=== PATIENT | female | born 1945 | race Caucasian/White ===

== ENCOUNTER → 2018-11-06 10:40 | Outpatient (CLI) | payer MEDICARE, OTHER, SELFPAY ==
--- NOTE | 2018-11-06 | DI.MG.S_ITS ---
BILATERAL DIGITAL SCREENING MAMMOGRAM 3D/2D WITH CAD: 11/06/2018 CLINICAL: Routine screening. Family history of breast cancer. Comparison is made to exams dated: 10/05/2017 mammogram, 09/06/2016 mammogram, and 09/01/2015 mammogram - [facility]. There are scattered fibroglandular elements in both breasts. Current study was also evaluated with a Computer Aided Detection (CAD) system. No significant masses, calcifications, or other findings are seen in either breast. There has been no significant interval change. IMPRESSION: NEGATIVE There is no mammographic evidence of malignancy. A 1 year screening mammogram is recommended. This exam was interpreted at Station ID: [id number]. NOTE: For mammograms, a report in lay terms will be sent to the patient. Approximately 15% of breast malignancies will not be visualized mammographically. In the management of a palpable breast mass, a negative mammogram must not discourage biopsy of a clinically suspicious lesion. Electronically Signed By: Justin medeiros/alok:11/06/2018 11:40:17 letter sent: Normal Exam ACR BI-RADS Category 1: Negative 3341F
== END ==
PROVIDERS: Family Provider Physician Assistant; PCP Physician Assistant; Visit Provider Physician Assistant
DX: Z12.31 Encounter for screening mammogram for malignant neoplasm of breast (principal); Z80.3 Family history of malignant neoplasm of breast
CPT/HCPCS: 77063; 77067

== ENCOUNTER 2019-04-07 12:49 | Emergency (ER) | payer MEDICARE, OTHER, SELFPAY ==
[2019-04-07 12:49] VITALS: BP 150/79; PULSE 74; RESP 18; TEMP 37.1; O2SAT 95; BMI 24.5
--- NOTE | 2019-04-07 13:01 | ED_ITS ---
HPI - Wound/Laceration <Rochelle Sharma PA-C - Last Filed: 04/07/19 20:23> General Chief Complaint: Wound/Laceration Stated Complaint: Fell and cut chin open Time Seen by Provider: 04/07/19 12:56 Source: patient Mode of arrival: ambulatory Limitations: no limitations History of Present Illness HPI narrative: This 74-year-old female was walking with item in both hands when she tripped over a parking bumper, falling onto her chin. She states that she did not hit her head, denies LOC or neck pain. She denies headache, vision change, nausea or vomiting. She states her left knee is a little bit sore but she was able to walk on it without problems. Witnesses helped her up and put pressure on the bleeding. Her says they came in because they thought she might need sutures in her chin. She denies pain in her jaw. Unsure of date of last tetanus vaccine Related Data Home Medications Medication Instructions Recorded Confirmed aspirin 325 mg PO QDAY #0 05/30/17 paroxetine HCl [Paxil] 10 mg PO QAM #0 05/30/17 escitalopram oxalate 10 mg PO DAILY 04/07/19 04/07/19 levothyroxine [Synthroid] 75 mcg PO DAILY 04/07/19 04/07/19 Allergies Allergy/AdvReac Type Severity Reaction Status Date / Time Penicillins [PENICILLINS] Allergy Mild RASH Verified 04/07/19 12:59 SULFA Allergy Mild RASH Uncoded 04/07/19 12:59 Review of Systems <Rochelle Sharma PA-C - Last Filed: 04/07/19 20:23> Review of Systems ROS Unobtainable: All systems reviewed & are unremarkable except as noted in HPI and below PFSH <Rochelle Sharma PA-C - Last Filed: 04/07/19 20:23> Medical History (Updated 04/07/19 @ 14:24 by Rochelle Sharma PA-C) GOLDIE (obstructive sleep apnea) (Chronic) Restless leg syndrome (Chronic) Obstructive sleep apnea of adult (Chronic) 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) Surgical History (Updated 04/07/19 @ 13:00 by Rochelle Sharma PA-C) Status post cholecystectomy Social History marital status: household members: spouse lives independently: Yes caregiver/support person: No housing: house occupational status: previously employed Smoking Status: Never smoker Social History marital status: household members: spouse lives independently: Yes caregiver/support person: No housing: house occupational status: previously employed Smoking Status: Never smoker Exam <Rochelle Sharma PA-C - Last Filed: 04/07/19 20:23> Narrative Exam Narrative: GENERAL APPEARANCE: Patient sitting comfortably, in no distress. HEENT: PERRL, EOMI, dentition appears intact. No tenderness over the facial bones. Patient is able to bite down on tongue depressor which can be twisted until broken without difficulty or pain. Full range of motion of the jaw. LUNGS: Clear to auscultation bilaterally. HEART: Rate and rhythm regular without murmur, normal S1 and S2, no S3 or S4. DERMATOLOGIC: There is a small, triangular avulsion just above the left mid lip with some swelling. On the inferior chin there is a 1 cm curvilinear laceration maximum depth 0.5 cm with some surrounding ecchymoses, nontender. Left knee there are some superficial scabs and abrasions MUSCULOSKELETAL: Mild tenderness over the left patella, no point tenderness over the joint line Initial Vital Signs Initial Vital Signs: Vital Signs Temperature 98.7 F 04/07/19 12:49 Pulse Rate 74 04/07/19 12:49 Respiratory Rate 18 04/07/19 12:49 Blood Pressure 150/79 H 04/07/19 12:49 Pulse Oximetry 95 04/07/19 12:49 <Ata Cedeno DO - Last Filed: 04/08/19 06:50> Initial Vital Signs Initial Vital Signs: Vital Signs Temperature 98.7 F 04/07/19 12:49 Pulse Rate 74 04/07/19 12:49 Respiratory Rate 18 04/07/19 12:49 Blood Pressure 150/79 H 04/07/19 12:49 Pulse Oximetry 95 04/07/19 12:49 Procedures <Rochelle Sharma PA-C - Last Filed: 04/07/19 20:23> Laceration Repair Laceration 1: Site: face (chin) Size (cm): 1 Description: linear Depth: simple, single layer Local Anesthetic: lidocaine 1% and with epi Amount of anesthesia used (mL): 4 Pre-repair: wound explored, irrigated extensively and deep structures intact Skin layer closed with: nylon Size (cm): 5-0 Technique: simple, interrupted Course <Rochelle Sharma PA-C - Last Filed: 04/07/19 20:23> Vital Signs - 8 hr 04/07/19 12:49 Temperature 98.7 F Pulse Rate 74 Respiratory Rate 18 Blood Pressure 150/79 H Pulse Oximetry 95 <Ata Cedeno DO - Last Filed: 04/08/19 06:50> Vital Signs - 8 hr 04/07/19 12:49 Temperature 98.7 F Pulse Rate 74 Respiratory Rate 18 Blood Pressure 150/79 H Pulse Oximetry 95 Discharge Plan Departure Patient Disposition: Home Clinical Impression: Contusion of multiple sites Laceration of chin Qualifiers: Encounter type: initial encounter Qualified Code(s): S01.81XA - Laceration without foreign body of other part of head, initial encounter Avulsion of skin of face Qualifiers: Encounter type: initial encounter Qualified Code(s): S01.80XA - Unspecified op en wound of other part of head, initial encounter Discharge Date/Time: 04/07/19 14:33 Interventions: ED Discharge Assessment Last Done: 04/07/19 14:33 Instructions: DI for Laceration Repair, DI for Avulsion Laceration (Not Requiring Sutures) Activity Restrictions/Additional Instructions: Your sutures should be ready to remove in about a week, so please schedule a fo llow-up with your PCP on Sunday. It will take some time for the bruising and swelling to improve. The area where the skin is torn above your upper lip should heal on its own. As we talked about, you can apply a little antibiotic ointment or Vaseline if the wounds are getting crusty. It is okay to rinse quickly and pat dry, do not keep the sutures in water for prolonged periods. You can leave open to air if you will not be in danger of bumping or tearing sutures, you can put a bandage over as needed. Monitor for signs of infection such as redness, draining pus, increased pain or fever and see your PCP right away or return to the ED if any of these occur. We did not update your tetanus vaccine today since we think you had 1 in 2014, but please verify this and make sure you get 1 with your PCP on Sunday if this is not the case. Prescriptions: No Action paroxetine HCl [Paxil] 10 MG tablet 10 mg PO QAM Qty: 0 RF: 0 aspirin 325 MG tablet 325 mg PO QDAY Qty: 0 RF: 0 levothyroxine [Synthroid] 75 mcg tablet 75 mcg PO DAILY RF: 0 escitalopram oxalate 10 mg tablet 10 mg PO DAILY RF: 0 Referrals: Falguni Foster PA-C [Primary Care Provider] - <Ata Cedeno DO - Last Filed: 04/08/19 06:50> Cosign ED Attending Jorge Lature Attestation: I was immediately available in the department for consultation. Documentation has been reviewed. I agree with assessment and plan.
--- NOTE | 2019-04-07 13:26 | PC.NURSE ---
tolerated well. with small amount of dark blood bleeding, preassure applied.
== END 2019-04-07 14:33 | disposition home or self-care (01) ==
PROVIDERS: Emergency Provider Internal Medicine; PCP Physician Assistant
DX: S01.81XA Laceration without foreign body of other part of head, initial encounter (principal); W01.0XXA Fall on same level from slipping, tripping and stumbling without subsequent striking against object, initial encounter
CPT/HCPCS: 12011; 99282; 99283

== ENCOUNTER → 2019-10-08 11:14 | Outpatient (CLI) | payer MEDICARE, OTHER, SELFPAY ==
--- NOTE | 2019-10-08 | DI.US.S_ITS ---
PROCEDURE: US PELVIC COMPLETE INDICATIONS: POSTMENOPAUSAL BLEEDING TECHNIQUE: Real-time scanning was performed of the pelvic organs, with image documentation. Additional endovaginal scanning was necessary due to incomplete visualization of the adnexal and endometrial structures by transabdominal scanning. COMPARISON: [facility], US, PELVIC COMPLETE, 05/30/2017, 10:02. FINDINGS: Transabdominal scanning: Limited scanning through the kidneys shows no hydronephrosis. No pathologic free abdominal or pelvic fluid. Endovaginal scanning: Uterus: Uterus is normal in size for postmenopausal status at 2.1 x 4.2 x 4.2 cm. The endometrium measures 3.1 mm in combined thickness, but is heterogeneous with several scattered echogenic foci with slight fluid within the endometrial canal.. Ovaries: Not seen. IMPRESSION: Slight fluid within the endometrial canal, mild heterogeneity of the endometrial lining. Subtle scattered echogenic foci likely reflecting dystrophic calcification is noted within the myometrium and endometrium. A discrete identifiable mass is not seen. Given the history of postmenopausal vaginal bleeding followup ultrasound assessment of the endometrial lining in 6-8 weeks is recommended given the presence of a small amount of fluid in that area and mild heterogeneity of the lining. Dictated by: Andrew Vegas M.D. on 10/08/2019 at 13:57 Approved by: Andrew Vegas M.D. on 10/08/2019 at 14:00
[2019-10-08 12:44] LABS: Add Manual Diff / Slide Review NO; Basophils Absolute Auto 0 /uL (0-100); Eosinophils Absolute Auto 100 /uL (0-450); Eosinophils Percent Auto 1.4 % (2-4); Hematocrit 39.7 % (36-46); Hemoglobin 13.7 g/dL (12.0-16.0); Lymphocytes Absolute Auto 1200 /uL (1100-4500); Lymphocytes Percent Auto 26.5 % (25-40); Mean Corpuscular HGB Conc 34.5 % (30-36); Mean Corpuscular Volume 98.4 fL (80-100); Monocytes Absolute Auto 300 /uL (0-900); Monocytes Percent Auto 5.9 % (3-14); Neutrophils Absolute Auto 2900 /uL (1500-7000); Neutrophils Percent Auto 65.2 % (50-75); Platelet Count 202 X10^3/uL (150-400); Red Blood Cell Count 4.04 X10^6/uL (4.0-5.2); Red Cell Distribution Width 12.7 % (11.6-14.8); White Blood Cell Count 4.4 X10^3/uL (4.5-11.0)
[2019-10-08 12:57] LABS: Alanine Aminotransferase 17 IU/L (<35); Albumin 4.6 g/dL (3.5-5.0); Alkaline Phosphatase 59 U/L (38-126); Aspartate Aminotransferase 32 IU/L (14-36); BUN Creatinine Ratio 15.6 (6-22); Bilirubin Total 0.6 mg/dL (0.2-1.3); Blood Urea Nitrogen 14 mg/dL (7-17); Calcium 9.8 mg/dL (8.4-10.2); Carbon Dioxide 28 mmol/L (22-32); Chloride 99 mmol/L (98-107); Cholesterol 205 mg/dL (140-199); Estimated Glomerular Filt Rate > 60.0 mL/min (>60); Globulin 4.6 g/dL (1.7-4.1); Glucose 104 mg/dL (80-110); HDL Cholesterol 42 mg/dL (40-60); HEMOLYSIS < 15 (0-50); LDL Cholesterol Calculated 139 mg/dL (<100); Potassium 4.5 mmol/L (3.4-5.1); Sodium 137 mmol/L (137-145); Total Protein 9.2 g/dL (6.3-8.2); Triglycerides 120 mg/dL (35-150)
[2019-10-08 13:41] LABS: TSH w/ Reflex to FT4 0.41 uIU/mL (0.47-4.68)
[2019-10-08 14:08] LABS: Free T4, Direct Thyroxine 1.71 ng/dL (0.78-2.19)
== END ==
PROVIDERS: PCP Physician Assistant; Visit Provider Physician Assistant
DX: N95.0 Postmenopausal bleeding (principal); E78.5 Hyperlipidemia, unspecified; E03.9 Hypothyroidism, unspecified
CPT/HCPCS: 36415; 76830; 76856; 80053; 80061; 84439; 84443; 85025

== ENCOUNTER → 2019-11-06 17:19 | Outpatient (ROUT) | payer MEDICARE, OTHER, SELFPAY ==
[2019-11-06 18:20] LABS: Alanine Aminotransferase 23 IU/L (<35); Albumin 4.2 g/dL (3.5-5.0); Alkaline Phosphatase 52 U/L (38-126); Aspartate Aminotransferase 34 IU/L (14-36); Bilirubin Total 0.4 mg/dL (0.2-1.3); Blood Urea Nitrogen 18 mg/dL (7-17); Calcium 9.6 mg/dL (8.4-10.2); Carbon Dioxide 29 mmol/L (22-32); Chloride 102 mmol/L (98-107); Cholesterol 161 mg/dL (140-199); Estimated Glomerular Filt Rate > 60.0 mL/min (>60); Globulin 4.1 g/dL (1.7-4.1); Glucose 87 mg/dL (80-110); HDL Cholesterol 42 mg/dL (40-60); HEMOLYSIS < 15 (0-50); LDL Cholesterol Calculated 88 mg/dL (<100); Potassium 4.1 mmol/L (3.4-5.1); Sodium 140 mmol/L (137-145); Total Protein 8.3 g/dL (6.3-8.2); Triglycerides 154 mg/dL (35-150)
[2019-11-06 18:51] LABS: TSH w/ Reflex to FT4 2.33 uIU/mL (0.47-4.68)
== END ==
PROVIDERS: PCP Physician Assistant; Visit Provider Physician Assistant
DX: E78.5 Hyperlipidemia, unspecified (principal); E03.9 Hypothyroidism, unspecified
CPT/HCPCS: 80053; 80061; 84443

== ENCOUNTER → 2019-11-10 13:06 | Outpatient (CLI) | payer MEDICARE, OTHER, SELFPAY | PROVIDERS: PCP Physician Assistant; Referring Provider Physician Assistant; Visit Provider Physician Assistant | DX: M85.851 Other specified disorders of bone density and structure, right thigh (principal); Z78.0 Asymptomatic menopausal state | CPT/HCPCS: 77080 ==

== ENCOUNTER → 2020-04-30 11:19 | Outpatient (CLI) | payer MEDICARE, OTHER, SELFPAY ==
--- NOTE | 2020-04-30 11:28 | DI.RAD.S_ITS ---
PROCEDURE: XR HIP W PEL IF DONE LT 2V INDICATIONS: HIP PAIN TECHNIQUE: AP pelvis with lateral view(s) of the left hip. COMPARISON: None. FINDINGS: Bones: No fractures or dislocations. Pelvic ring appears intact. No suspicious bony lesions. Only mild symmetric hip joint osteoarthritis is found. Soft tissues: The visualized bowel gas pattern is normal. No suspicious soft tissue calcifications. IMPRESSION: Mild symmetric hip joint osteoarthritis, no trauma found. Dictated by: Andrew Vegas M.D. on 04/30/2020 at 14:36 Approved by: Andrew Vegas M.D. on 04/30/2020 at 14:37
--- NOTE | 2020-04-30 11:28 | DI.RAD.S_ITS ---
PROCEDURE: XR LUMBAR SPINE MIN 4V INDICATIONS: BACK PAIN TECHNIQUE: 5 views of the lumbar spine were acquired. COMPARISON: None. FINDINGS: Bones: 5 nonrib-bearing vertebrae are present. There is slightly dextroscoliotic bony alignment at the L2 level. No vertebral body compression fractures. No suspicious bony lesions. Mild degenerative disc disease along the lumbosacral spine, comprised of disc height reduction throughout, mild in overall severity. Facet osteoarthritis becomes progressively more prominent from L3 inferiorly, and to the degree at L4-5 and L5-S1 that spinal and foraminal stenosis may be associated. Soft tissues: Overlying bowel gas pattern is normal. No suspicious soft tissue calcifications. Oblique images: No pars defects. IMPRESSION: No trauma found, but there is mild generalized degenerative disc disease and moderate facet osteoarthritis that progresses from L3 inferiorly to the point that spinal and foraminal stenosis at L4-5 and L5-S1 would be suspected. Dictated by: Andrew Vegas M.D. on 04/30/2020 at 14:03 Approved by: Andrew Vegas M.D. on 04/30/2020 at 14:05
--- NOTE | 2020-04-30 11:28 | DI.RAD.S_ITS ---
PROCEDURE: XR KNEE LT 3V INDICATIONS: LT KNEE PAIN TECHNIQUE: 3 views of the knee were acquired. COMPARISON: None. FINDINGS: Bones: No fracture. Mild narrowing of the medial joint space. Scattered degenerative subchondral sclerosis and spurring. Soft tissues: No joint effusion. No suspicious soft tissue calcifications. IMPRESSION: Mild left knee joint degeneration. Dictated by: Niko Hodgson M.D. on 04/30/2020 at 14:17 Approved by: Niko Hodgson M.D. on 04/30/2020 at 14:18
== END ==
PROVIDERS: PCP Physician Assistant; Referring Provider Physician Assistant; Visit Provider Physician Assistant
DX: M25.552 Pain in left hip (principal); M16.12 Unilateral primary osteoarthritis, left hip; M25.562 Pain in left knee; M17.12 Unilateral primary osteoarthritis, left knee; M54.5 Low back pain; M51.36 Other intervertebral disc degeneration, lumbar region; M47.816 Spondylosis without myelopathy or radiculopathy, lumbar region; M47.817 Spondylosis without myelopathy or radiculopathy, lumbosacral region
CPT/HCPCS: 72110; 73502; 73562

== ENCOUNTER → 2020-05-11 14:13 | Outpatient (CLI) | payer MEDICARE, OTHER, SELFPAY ==
--- NOTE | 2020-05-11 | DI.MRI.S_ITS ---
PROCEDURE: MR LUMBAR SPINE WO CON INDICATIONS: Spinal stenosis, lumbar region TECHNIQUE: Noncontrast sagittal T1 spin echo and T2 fast echo, sagittal STIR, axial T1 and T2 fast spin echo through the lumbar spine. In cases with scoliosis, additional coronal T2 fast spin echo may be performed. COMPARISON: [facility], CR, XR LUMBAR SPINE MIN 4V, 04/30/2020, 11:18. FINDINGS: Image quality: Excellent. Alignment and Curvature: There is normal bony alignment. Bone Marrow: Marrow is of normal overall signal. No acute vertebral body compression fractures. Spinal Cord: Conus medullaris terminates at the L1-L2 level. Visualized cord demonstrates normal signal and size. Paraspinous Soft Tissues: No paravertebral masses. T12-L1: No canal stenosis or foraminal stenosis. L1-L2: Disc bulge. Mild facet hypertrophy. No canal stenosis or foraminal stenosis. L2-L3: There is a very shallow central posterior disc extrusion which has extended from the disc space superiorly up behind L2 resulting in mild canal stenosis. This is likely a chronic finding based on signal characteristics. It measures approximately 2.7 x 0.8 x 0.4 cm. Mild facet hypertrophy. No foraminal stenosis. L3-L4: Mild right posterior lateral disc bulge. Facet hypertrophy. Borderline canal stenosis. No significant foraminal stenosis. L4-L5: Disc bulge. Mild facet hypertrophy, right greater than left. No canal stenosis. Mild right foraminal stenosis. L5-S1: Prominent facet hypertrophy. No canal stenosis or significant foraminal stenosis. IMPRESSION: 1. At L2-L3, there is a probably chronic, very shallow central posterior disc extrusion extending cephalad behind L2, resulting in mild canal stenosis. 2. Canal stenosis is borderline at L3-L4. 3. Multilevel facet arthropathy. Dictated by: Ramon Carrera M.D. on 05/11/2020 at 14:58 Approved by: Ramon Carrera M.D. on 05/11/2020 at 16:20
== END ==
PROVIDERS: PCP Physician Assistant; Referring Provider Physician Assistant; Visit Provider Physician Assistant
DX: M48.061 Spinal stenosis, lumbar region without neurogenic claudication (principal); M51.16 Intervertebral disc disorders with radiculopathy, lumbar region; M47.26 Other spondylosis with radiculopathy, lumbar region; M47.27 Other spondylosis with radiculopathy, lumbosacral region; R29.898 Other symptoms and signs involving the musculoskeletal system
CPT/HCPCS: 72148

== ENCOUNTER → 2020-11-15 19:15 | Outpatient (ROUT) | payer MEDICARE, OTHER, SELFPAY ==
[2020-11-15 19:43] LABS: Alanine Aminotransferase 17 IU/L (<35); Albumin 4.2 g/dL (3.5-5.0); Alkaline Phosphatase 61 U/L (38-126); Aspartate Aminotransferase 29 IU/L (14-36); BUN Creatinine Ratio 22.1 (6-22); Bilirubin Total 0.2 mg/dL (0.2-1.3); Blood Urea Nitrogen 17 mg/dL (7-17); Calcium 9.4 mg/dL (8.4-10.2); Carbon Dioxide 29 mmol/L (22-32); Chloride 104 mmol/L (98-107); Cholesterol 178 mg/dL (140-199); Estimated Glomerular Filt Rate > 60.0 mL/min (>60); Globulin 4.2 g/dL (1.7-4.1); Glucose 102 mg/dL (80-110); HDL Cholesterol 51 mg/dL (40-60); HEMOLYSIS < 15 (0-50); LDL Cholesterol Calculated 97 mg/dL (<100); Potassium 4.4 mmol/L (3.4-5.1); Sodium 137 mmol/L (137-145); Total Protein 8.4 g/dL (6.3-8.2); Triglycerides 150 mg/dL (35-150)
[2020-11-15 19:45] LABS: HEMOLYSIS < 15 (0-50); Iron 58 ug/dL (37-170)
[2020-11-15 19:54] LABS: Add Manual Diff / Slide Review NO; Basophils Absolute Auto 100 /uL (0-100); Eosinophils Absolute Auto 200 /uL (0-450); Eosinophils Percent Auto 4.1 % (2-4); Hematocrit 38.2 % (36-46); Hemoglobin 13.1 g/dL (12.0-16.0); Lymphocytes Absolute Auto 1400 /uL (1100-4500); Lymphocytes Percent Auto 28.4 % (25-40); Mean Corpuscular HGB Conc 34.2 % (30-36); Mean Corpuscular Hemoglobin 34.4 PG (26-34); Mean Corpuscular Volume 100.4 fL (80-100); Monocytes Absolute Auto 400 /uL (0-900); Monocytes Percent Auto 7.3 % (3-14); Neutrophils Absolute Auto 3000 /uL (1500-7000); Neutrophils Percent Auto 59.2 % (50-75); Platelet Count 196 X10^3/uL (150-400); Red Blood Cell Count 3.81 X10^6/uL (4.0-5.2); White Blood Cell Count 5.1 X10^3/uL (4.5-11.0)
[2020-11-15 20:00] LABS: Percent Iron Saturation 20 % (15-50); Total Iron Binding Capacity 295 ug/dL (265-497); Transferrin 216 mg/dL (206-381); Vitamin D 25 Hydroxy (D3) 53.3 ng/mL (30.0-100.0)
[2020-11-15 20:18] LABS: Ferritin 66 ng/mL (11-264); TSH w/ Reflex to FT4 1.28 uIU/mL (0.47-4.68)
== END ==
PROVIDERS: PCP Physician Assistant; Visit Provider Physician Assistant
DX: E03.9 Hypothyroidism, unspecified (principal); E78.5 Hyperlipidemia, unspecified
CPT/HCPCS: 80053; 80061; 82306; 82728; 83540; 83550; 84443; 85025

== ENCOUNTER → 2020-12-27 10:24 | Outpatient (CLI) | payer MEDICARE, OTHER, SELFPAY ==
--- NOTE | 2020-12-27 10:27 | DI.MG.S_ITS ---
BILATERAL DIGITAL SCREENING MAMMOGRAM 3D/2D WITH CAD: 12/27/2020 CLINICAL: Routine screening. Family history of breast cancer. Comparison is made to exams dated: 11/06/2018 mammogram, 10/05/2017 mammogram, and 09/06/2016 mammogram - [facility]. There are scattered fibroglandular elements in both breasts. Current study was also evaluated with a Computer Aided Detection (CAD) system. No significant masses, calcifications, or other findings are seen in either breast. There has been no significant interval change. IMPRESSION: NEGATIVE There is no mammographic evidence of malignancy. A 1 year screening mammogram is recommended. This exam was interpreted at Station ID: [id number]. NOTE: For mammograms, a report in lay terms will be sent to the patient. Approximately 15% of breast malignancies will not be visualized mammographically. In the management of a palpable breast mass, a negative mammogram must not discourage biopsy of a clinically suspicious lesion. Electronically Signed By: Waylon goode/alok:12/27/2020 10:49:59 letter sent: Normal Exam ACR BI-RADS Category 1: Negative 3341F
== END ==
PROVIDERS: PCP Physician Assistant; Referring Provider Physician Assistant; Visit Provider Physician Assistant
DX: Z12.31 Encounter for screening mammogram for malignant neoplasm of breast (principal); Z80.3 Family history of malignant neoplasm of breast
CPT/HCPCS: 77063; 77067

== ENCOUNTER 2021-05-11 11:15 | Outpatient (RCR) | payer MEDICARE, OTHER, SELFPAY ==
--- NOTE | 2021-04-28 10:23 | PT.OIE ---
Current Diagnoses Other abnormalities of gait and mobility (04/28/21) Weakness (04/28/21) Past Medical History (Last Reviewed 10/15/19 @ 17:37 by Nadeen Cooney MD) Obstructive sleep apnea of adult GOLDIE (obstructive sleep apnea) Restless leg syndrome Traumatic brain injury with loss of consciousness Past Surgical History (Last Reviewed 10/15/19 @ 17:37 by Nadeen Cooney MD) Status post cholecystectomy Visit Care Team Role Provider Type Falguni Foster PA-C Primary Care Provider Non-Staff Specialty: Internal Medicine Address: [address] [place] [address] Email: [email or web address] Romain Owen MD Attending Provider Non-Staff Referring Provider Specialty: Internal Medicine Address: [address] [place] [address], [facility] Email: Physical Therapy Initial Evaluation PT-OP-A Visit Information Start: 04/28/21 10:09 Freq: Status: Active Protocol: Document 04/28/21 09:30 OF (Rec: 04/28/21 10:23 OF [id number]) Out-Patient Physical Therapy Visit Information Visit Information Visit Type Initial Evaluation Visit Start Time 08:50 Visit Stop Time 09:30 Total Visit Minutes 40 Visit Number 1 Evaluation Information Evaluation Date 04/28/21 Precautions Precautions aphasia, difficulty reading/ writing PT-OP-B Current Condition Start: 04/28/21 10:09 Freq: Status: Active Protocol: Document 04/28/21 09:30 OF (Rec: 04/28/21 10:23 OF [id number]) Current Condition History of Current Condition Onset Date ~several months Current Complaints difficulty with sit to stand, fatigue History of Current Condition Pt states over past couple months she has had difficulty with prolonged activity, exercise, and sit to stand. She continues to exercise at [employer]. Treatment Goals Patient/Caregiver Goals Get my strength back Prior Functional Status Baseline Function- ADL's Independent Baseline Function- Mobility Independent PT-OP-C Subjective Start: 04/28/21 10:09 Freq: Status: Active Protocol: Document 04/28/21 09:30 OF (Rec: 04/28/21 10:23 OF [id number]) OP-PT Subjective Patient Comments Patient Comments pt reports increased difficulty with prolonged activity, fatigue with exertion Patient Reported Progress Same OP-PT Pain Assessment Pain Assessment Grid Paper Pain Assessment Grid Completed No: pt denies pain today PT-OP-D Balance Start: 04/28/21 10:09 Freq: Status: Active Protocol: Document 04/28/21 09:30 OF (Rec: 04/28/21 10:23 OF [id number]) Balance Tests Clinton Balance Test Clinton Balance Test Score 53 Clinton Impairment Rating 1 to 19% Impaired (Score 45-55 ) PT-OP-E Functional Tests Start: 04/28/21 10:09 Freq: Status: Active Protocol: Document 04/28/21 09:30 OF (Rec: 04/28/21 10:23 OF [id number]) Functional Tests 6 Minute Walk Test Distance 1500ft Device Used none PT-OP-M Strength Start: 04/28/21 10:09 Freq: Status: Active Protocol: Document 04/28/21 09:30 OF (Rec: 04/28/21 10:23 OF [id number]) Knee Strength Knee Manual Muscle Testing l Flexion (S2) 4+ Good+ Extension (L3) 4+ Good+ r Flexion (S2) 4+ Good+ Extension (L3) 4+ Good+ Ankle/Foot Strength Ankle and Foot Manual Muscle Testing Right Dorsiflexion (L4) 4+ Good+ Plantarflexion (S1) 4+ Good+ Inversion 4+ Good+ Eversion (S1) 4+ Good+ Left Dorsiflexion (L4) 4+ Good+ Plantarflexion (S1) 4+ Good+ Inversion 4+ Good+ Eversion (S1) 4+ Good+ PT-OP-Q Treatments Start: 04/28/21 10:09 Freq: Status: Active Protocol: Document 04/28/21 09:30 OF (Rec: 04/28/21 10:23 OF [id number]) Therapeutic Exercises Standing Exercises heel/toe lifts Side bilateral Reps/Minutes 3x10 Comments to improve pushoff with amb minisquats Side bilateral Reps/Minutes 3x5 Comments cues for proper hip extension Self-Care/Home Management Treatment Education Patient Education Body Mechanics,Home Exercise Program PT-OP-T Assessment and Plan Start: 04/28/21 10:09 Freq: Status: Active Protocol: Document 04/28/21 09:30 OF (Rec: 04/28/21 10:23 OF [id number]) Physical Therapy Assessment Rehab Potential Rehabilitation Potential Excellent Evaluation Complexity Number of Personal Factors/Comorbidities 1-2 Number of Body Systems Impaired 1-2 Clinical Presentation at Evaluation Stable Impairments Impairments Activity Tolerance Goals function Impairment Pt has limited activity tolerance Prison Goal (LTG) Pt will improve perceived functional performance from 5/ 10 to 9/10 for her ability to complete exercises and ADL. Endurance Impairment Pt is unable to perform gym routine as she used to Short Term Goal (STG) Pt will complete her preferred gym routine in 60min STG Duration 2 weeks Curtain Feller Blindstitch Goal (LTG) Pt will improve her endurance to perform gym routine and HEP in 60min LTG Duration 4 weeks HEP Impairment pt is unsure what to add to gym routine Short Term Goal (STG) Pt will be I with HEP to perform in addition to gym routine STG Duration 2 weeks Assessment Summary Assessment Karla Muniz) is a pleasant 75yo female referred to therapy for weakness. She has had difficulty performing her preferred gym routine, walking with neighbors, or performing ADLs. She fatigues quickly. 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 She has no mobility deficits after CVA or TBI. She requests to participate 1x/ week as a check up and perform HEP at gym. She is motivated to return to [facility]. She will require skilled therapy to improve endurance, increase capacity for exercise and perform her gym routine in 60min. Physical Therapy Plan Frequency and Duration Frequency of Treatment 1x/Week Duration of Treatment 4 weeks Plan of Care Start Date 04/28/21 Plan of Care End Date 05/28/21 Therapeutic Interventions Therapeutic Interventions Home Exercise Program,Manual Therapy,Neuromuscular Re- education,Therapeutic Activities,Therapeutic Exercises Next Visit Focus/Plan Next Note Type Treatment Note Next Visit Plan re assess HEP. Pt requested 1x /week to have gym routine established. She uses [employer] regularly. Progress HEP for machines, LE strengthening, endurance
--- NOTE | 2021-04-28 10:23 | PT.OPPOC ---
Physical, Occupational & Speech Therapy At [facility] Current Diagnoses Other abnormalities of gait and mobility (04/28/21) Weakness (04/28/21) Visit Care Team Role Provider Type Falguni Foster PA-C Primary Care Provider Non-Staff Specialty: Internal Medicine Address: [address] [place] [address], [facility] Email: [email or web address] Romain Owen MD Attending Provider Non-Staff Referring Provider Specialty: Internal Medicine Address: [address] [place] [address], [id number] Email: Plan Of Care PT-OP-T Assessment and Plan Start: 04/28/21 10:09 Freq: Status: Active Protocol: Document 04/28/21 09:30 OF (Rec: 04/28/21 10:23 OF [id number]) Physical Therapy Assessment Rehab Potential Rehabilitation Potential Excellent Evaluation Complexity Number of Personal Factors/Comorbidities 1-2 Number of Body Systems Impaired 1-2 Clinical Presentation at Evaluation Stable Impairments Impairments Activity Tolerance Goals function Impairment Pt has limited activity tolerance Penitentiary Goal (LTG) Pt will improve perceived functional performance from 5/ 10 to 9/10 for her ability to complete exercises and ADL. Endurance Impairment Pt is unable to perform gym routine as she used to Short Term Goal (STG) Pt will complete her preferred gym routine in 60min STG Duration 2 weeks Sand Tester Goal (LTG) Pt will improve her endurance to perform gym routine and HEP in 60min LTG Duration 4 weeks HEP Impairment pt is unsure what to add to gym routine Short Term Goal (STG) Pt will be I with HEP to perform in addition to gym routine STG Duration 2 weeks Assessment Summary Assessment Karla Muniz) is a pleasant 75yo female referred to therapy for weakness. She has had difficulty performing her preferred gym routine, walking with neighbors, or performing ADLs. She fatigues quickly. 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 She has no mobility deficits after CVA or TBI. She requests to participate 1x/ week as a check up and perform HEP at gym. She is motivated to return to [facility]. She will require skilled therapy to improve endurance, increase capacity for exercise and perform her gym routine in 60min. Physical Therapy Plan Frequency and Duration Frequency of Treatment 1x/Week Duration of Treatment 4 weeks Plan of Care Start Date 04/28/21 Plan of Care End Date 05/28/21 Therapeutic Interventions Therapeutic Interventions Home Exercise Program,Manual Therapy,Neuromuscular Re- education,Therapeutic Activities,Therapeutic Exercises Next Visit Focus/Plan Next Note Type Treatment Note Next Visit Plan re assess HEP. Pt requested 1x /week to have gym routine established. She uses [employer] regularly. Progress HEP for machines, LE strengthening, endurance Plan of Care Dates Plan of Care Start Date 04/28/21 Plan of Care End Date 05/28/21 Electronically Signed by: Fahad Lundy, PT 04/28/21 1027 Please Sign and Return: I have reviewed this Plan of Care and certify that the skilled therapy services above are required to meet the patient?s needs. Physician Signature Date Printed Name and Credentials Clinical Instructor Signature Printed Name and Credentials
--- NOTE | 2021-05-03 11:19 | PT.OTN ---
Current Diagnoses Other abnormalities of gait and mobility (05/03/21) Weakness (05/03/21) Physical Therapy Treatment Note PT-OP-A Visit Information Start: 04/28/21 10:09 Freq: Status: Active Protocol: Document 05/03/21 10:26 OF (Rec: 05/03/21 11:19 OF [id number]) Out-Patient Physical Therapy Visit Information Visit Information Visit Type Treatment Note Visit Start Time 09:44 Visit Stop Time 10:25 Total Visit Minutes 41 Visit Number 2 Evaluation Information Evaluation Date 04/28/21 Precautions Precautions aphasia limits reading/writing PT-OP-B Current Condition Start: 04/28/21 10:09 Freq: Status: Active Protocol: Document 04/28/21 09:30 OF (Rec: 04/28/21 10:23 OF [id number]) Current Condition History of Current Condition Onset Date ~several months Current Complaints difficulty with sit to stand, fatigue History of Current Condition Pt states over past couple months she has had difficulty with prolonged activity, exercise, and sit to stand. She continues to exercise at [facility]. Treatment Goals Patient/Caregiver Goals Get my strength back Prior Functional Status Baseline Function- ADL's Independent Baseline Function- Mobility Independent PT-OP-C Subjective Start: 04/28/21 10:09 Freq: Status: Active Protocol: Document 05/03/21 10:26 OF (Rec: 05/03/21 11:19 OF [id number]) OP-PT Subjective Patient Comments Patient Comments pt states she has been performing HEP as instructed Patient Reported Progress Same OP-PT Pain Assessment Pain Assessment Grid Paper Pain Assessment Grid Completed No: pt denies pain PT-OP-D Balance Start: 04/28/21 10:09 Freq: Status: Active Protocol: Document 04/28/21 09:30 OF (Rec: 04/28/21 10:23 OF [id number]) Balance Tests Clinton Balance Test Clinton Balance Test Score 53 Clinton Impairment Rating 1 to 19% Impaired (Score 45-55 ) PT-OP-E Functional Tests Start: 04/28/21 10:09 Freq: Status: Active Protocol: Document 04/28/21 09:30 OF (Rec: 04/28/21 10:23 OF [id number]) Functional Tests 6 Minute Walk Test Distance 1500ft Device Used none PT-OP-M Strength Start: 04/28/21 10:09 Freq: Status: Active Protocol: Document 04/28/21 09:30 OF (Rec: 04/28/21 10:23 OF [id number]) Knee Strength Knee Manual Muscle Testing l Flexion (S2) 4+ Good+ Extension (L3) 4+ Good+ r Flexion (S2) 4+ Good+ Extension (L3) 4+ Good+ Ankle/Foot Strength Ankle and Foot Manual Muscle Testing Right Dorsiflexion (L4) 4+ Good+ Plantarflexion (S1) 4+ Good+ Inversion 4+ Good+ Eversion (S1) 4+ Good+ Left Dorsiflexion (L4) 4+ Good+ Plantarflexion (S1) 4+ Good+ Inversion 4+ Good+ Eversion (S1) 4+ Good+ PT-OP-Q Treatments Start: 04/28/21 10:09 Freq: Status: Active Protocol: Document 05/03/21 10:26 OF (Rec: 05/03/21 11:19 OF [id number]) Cardio Equipment Recumbent Bicycle Duration (Minutes) 10 Resistance 8 Seat Position 5 Therapeutic Exercises Sitting Exercises leg press Side bilateral Resistance 75# Reps/Minutes 30 Comments using shuttlerecovery. Cues for ext rotation at hips knee ext/flex Side bilateral Resistance 3plates Reps/Minutes 3x10 Comments using machine Standing Exercises heel toe walk Side bilateral Reps/Minutes 3x15ft, Comments cues for UE suppport with HEP monsterwalks Side bilateral Resistance TB2 Reps/Minutes 10ft Comments demo for proper heel toe strike, hip position shldr rows/ext Side bilateral Resistance TB2 Comments cues for shldr retractions, proper eccentric control heel/toe lifts Side bilateral Reps/Minutes 3x10 Comments to improve pushoff with amb minisquats Side bilateral Reps/Minutes 3x5 Comments cues for proper hip extension Self-Care/Home Management Treatment Education Patient Education Home Exercise Program PT-OP-T Assessment and Plan Start: 04/28/21 10:09 Freq: Status: Active Protocol: Document 05/03/21 10:26 OF (Rec: 05/03/21 11:19 OF [id number]) Physical Therapy Assessment Rehab Potential Rehabilitation Potential Good Evaluation Complexity Number of Personal Factors/Comorbidities 1-2 Number of Body Systems Impaired 1-2 Clinical Presentation at Evaluation Stable Impairments Impairments Activity Tolerance Goals function Impairment Pt has limited activity tolerance Legislative Correspondent Goal (LTG) Pt will improve perceived functional performance from 5/ 10 to 9/10 for her ability to complete exercises and ADL. Endurance Impairment Pt is unable to perform gym routine as she used to Short Term Goal (STG) Pt will complete her preferred gym routine in 60min STG Duration 2 weeks Legislative Correspondent Goal (LTG) Pt will improve her endurance to perform gym routine and HEP in 60min LTG Duration 4 weeks HEP Impairment pt is unsure what to add to gym routine Short Term Goal (STG) Pt will be I with HEP to perform in addition to gym routine STG Duration 2 weeks Progress Towards Goals Progress Towards Goals Progressing Toward Goals Assessment Summary Assessment Hemalatha reports good results with HEP at gym, requesting progression for home program. Agreeable to returning weekly for reassessment as she has good success with pictures for HEP Physical Therapy Plan Frequency and Duration Frequency of Treatment 1x/Week Duration of Treatment 4 weeks Plan of Care Start Date 04/28/21 Plan of Care End Date 05/28/21 Therapeutic Interventions Therapeutic Interventions Home Exercise Program,Manual Therapy,Neuromuscular Re- education,Therapeutic Activities,Therapeutic Exercises Next Visit Focus/Plan Next Note Type Treatment Note Next Visit Plan re assess HEP and progress strengthening/balance training for gym program
--- NOTE | 2021-05-11 11:55 | PT.OTN ---
Current Diagnoses Other abnormalities of gait and mobility (05/11/21) Weakness (05/11/21) Physical Therapy Treatment Note PT-OP-A Visit Information Start: 04/28/21 10:09 Freq: Status: Active Protocol: Document 05/11/21 11:54 OF (Rec: 05/11/21 11:55 OF [id number]) Out-Patient Physical Therapy Visit Information Visit Information Visit Type Treatment Note Visit Start Time 11:15 Visit Stop Time 11:54 Total Visit Minutes 39 Visit Number 3 Evaluation Information Evaluation Date 04/28/21 Precautions Precautions aphasia limits reading/writing PT-OP-B Current Condition Start: 04/28/21 10:09 Freq: Status: Active Protocol: Document 04/28/21 09:30 OF (Rec: 04/28/21 10:23 OF [id number]) Current Condition History of Current Condition Onset Date ~several months Current Complaints difficulty with sit to stand, fatigue History of Current Condition Pt states over past couple months she has had difficulty with prolonged activity, exercise, and sit to stand. She continues to exercise at [facility]. Treatment Goals Patient/Caregiver Goals Get my strength back Prior Functional Status Baseline Function- ADL's Independent Baseline Function- Mobility Independent PT-OP-C Subjective Start: 04/28/21 10:09 Freq: Status: Active Protocol: Document 05/11/21 11:54 OF (Rec: 05/11/21 11:55 OF [id number]) OP-PT Subjective Patient Comments Patient Comments pt states she is doing well and would like to DC due to the increase in local covid19 cases Patient Reported Progress Improving OP-PT Pain Assessment Pain Assessment Grid Paper Pain Assessment Grid Completed No: pt denies pain PT-OP-D Balance Start: 04/28/21 10:09 Freq: Status: Active Protocol: Document 04/28/21 09:30 OF (Rec: 04/28/21 10:23 OF [id number]) Balance Tests Clinton Balance Test Clinton Balance Test Score 53 Clinton Impairment Rating 1 to 19% Impaired (Score 45-55 ) PT-OP-E Functional Tests Start: 04/28/21 10:09 Freq: Status: Active Protocol: Document 04/28/21 09:30 OF (Rec: 04/28/21 10:23 OF [id number]) Functional Tests 6 Minute Walk Test Distance 1500ft Device Used none PT-OP-M Strength Start: 04/28/21 10:09 Freq: Status: Active Protocol: Document 04/28/21 09:30 OF (Rec: 04/28/21 10:23 OF [id number]) Knee Strength Knee Manual Muscle Testing l Flexion (S2) 4+ Good+ Extension (L3) 4+ Good+ r Flexion (S2) 4+ Good+ Extension (L3) 4+ Good+ Ankle/Foot Strength Ankle and Foot Manual Muscle Testing Right Dorsiflexion (L4) 4+ Good+ Plantarflexion (S1) 4+ Good+ Inversion 4+ Good+ Eversion (S1) 4+ Good+ Left Dorsiflexion (L4) 4+ Good+ Plantarflexion (S1) 4+ Good+ Inversion 4+ Good+ Eversion (S1) 4+ Good+ PT-OP-Q Treatments Start: 04/28/21 10:09 Freq: Status: Active Protocol: Document 05/11/21 11:54 OF (Rec: 05/11/21 11:55 OF [id number]) Cardio Equipment Recumbent Bicycle Duration (Minutes) 10 Resistance 8 Seat Position 5 Treadmill Duration (Minutes) 5 Speed 3 Incline 2 Therapeutic Exercises Sitting Exercises leg press Side bilateral Resistance 75# Reps/Minutes 30 Comments using shuttlerecovery. Cues for ext rotation at hips knee ext/flex Side bilateral Resistance 3plates Reps/Minutes 3x10 Comments using machine Standing Exercises woodchops Side bilateral Resistance TB3 Reps/Minutes 3x5 foam squats Side bilateral Resistance airex Reps/Minutes 3x10 Self-Care/Home Management Treatment Education Patient Education Home Exercise Program PT-OP-T Assessment and Plan Start: 04/28/21 10:09 Freq: Status: Active Protocol: Document 05/11/21 11:54 OF (Rec: 05/11/21 11:55 OF [id number]) Physical Therapy Assessment Rehab Potential Rehabilitation Potential Excellent Evaluation Complexity Number of Personal Factors/Comorbidities 1-2 Number of Body Systems Impaired 1-2 Goals function Impairment Pt has limited activity tolerance Mcc Goal (LTG) Pt will improve perceived functional performance from 5/ 10 to 9/10 for her ability to complete exercises and ADL. Met / Endurance Impairment Pt is unable to perform gym routine as she used to Short Term Goal (STG) Pt will complete her preferred gym routine in 60min Met 05/11 STG Duration 2 weeks Mcc Goal (LTG) Pt will improve her endurance to perform gym routine and HEP in 60min Met 05/11 LTG Duration 4 weeks HEP Impairment pt is unsure what to add to gym routine Short Term Goal (STG) Pt will be I with HEP to perform in addition to gym routine Met 05/11 STG Duration 2 weeks Progress Towards Goals Progress Towards Goals Goals Met Assessment Summary Assessment Hemalatha requests DC today. She states she can perform her HEP at home and gym like I want to She has improved her endurance with activity and has good recall of HEP. Written instructions issued. Physical Therapy Plan Frequency and Duration Duration of Treatment 4 weeks Plan of Care Start Date 04/28/21 Plan of Care End Date 05/28/21 Therapeutic Interventions Therapeutic Interventions Home Exercise Program,Manual Therapy,Neuromuscular Re- education,Therapeutic Activities,Therapeutic Exercises Discharge Physical Therapy Discharge Reasons Patient Request Next Visit Focus/Plan Next Note Type Discharge Summary Next Visit Plan DC
--- NOTE | 2021-05-11 11:55 | PT.OPDS ---
Current Diagnoses Other abnormalities of gait and mobility (05/11/21) Weakness (05/11/21) Visit Care Team Role Provider Type Falguni Foster PA-C Primary Care Provider Non-Staff Specialty: Internal Medicine Address: [address] [place] [address], [address] Email: [email or web address] Romain Owen MD Attending Provider Non-Staff Referring Provider Specialty: Internal Medicine Address: [address] [place] [address], [id number] Email: Visit Number Visit Number 3 Discharge Summary PT-OP-B Current Condition Start: 04/28/21 10:09 Freq: Status: Active Protocol: Document 04/28/21 09:30 OF (Rec: 04/28/21 10:23 OF [id number]) Current Condition History of Current Condition Onset Date ~several months Current Complaints difficulty with sit to stand, fatigue History of Current Condition Pt states over past couple months she has had difficulty with prolonged activity, exercise, and sit to stand. She continues to exercise at [facility]. Treatment Goals Patient/Caregiver Goals Get my strength back Prior Functional Status Baseline Function- ADL's Independent Baseline Function- Mobility Independent PT-OP-C Subjective Start: 04/28/21 10:09 Freq: Status: Active Protocol: Document 05/11/21 11:54 OF (Rec: 05/11/21 11:55 OF [id number]) OP-PT Subjective Patient Comments Patient Comments pt states she is doing well and would like to DC due to the increase in local covid19 cases Patient Reported Progress Improving OP-PT Pain Assessment Pain Assessment Grid Paper Pain Assessment Grid Completed No: pt denies pain PT-OP-D Balance Start: 04/28/21 10:09 Freq: Status: Active Protocol: Document 04/28/21 09:30 OF (Rec: 04/28/21 10:23 OF [id number]) Balance Tests Clinton Balance Test Clinton Balance Test Score 53 Clinton Impairment Rating 1 to 19% Impaired (Score 45-55 ) PT-OP-E Functional Tests Start: 04/28/21 10:09 Freq: Status: Active Protocol: Document 04/28/21 09:30 OF (Rec: 04/28/21 10:23 OF [id number]) Functional Tests 6 Minute Walk Test Distance 1500ft Device Used none PT-OP-M Strength Start: 04/28/21 10:09 Freq: Status: Active Protocol: Document 04/28/21 09:30 OF (Rec: 04/28/21 10:23 OF [id number]) Knee Strength Knee Manual Muscle Testing l Flexion (S2) 4+ Good+ Extension (L3) 4+ Good+ r Flexion (S2) 4+ Good+ Extension (L3) 4+ Good+ Ankle/Foot Strength Ankle and Foot Manual Muscle Testing Right Dorsiflexion (L4) 4+ Good+ Plantarflexion (S1) 4+ Good+ Inversion 4+ Good+ Eversion (S1) 4+ Good+ Left Dorsiflexion (L4) 4+ Good+ Plantarflexion (S1) 4+ Good+ Inversion 4+ Good+ Eversion (S1) 4+ Good+ PT-OP-T Assessment and Plan Start: 04/28/21 10:09 Freq: Status: Active Protocol: Document 05/11/21 11:54 OF (Rec: 05/11/21 11:55 OF [id number]) Physical Therapy Assessment Rehab Potential Rehabilitation Potential Excellent Evaluation Complexity Number of Personal Factors/Comorbidities 1-2 Number of Body Systems Impaired 1-2 Goals function Impairment Pt has limited activity tolerance V Belt Builder Goal (LTG) Pt will improve perceived functional performance from 5/ 10 to 9/10 for her ability to complete exercises and ADL. Met 9/1 Endurance Impairment Pt is unable to perform gym routine as she used to Short Term Goal (STG) Pt will complete her preferred gym routine in 60min Met 9/ STG Duration 2 weeks V Belt Builder Goal (LTG) Pt will improve her endurance to perform gym routine and HEP in 60min Met 9/1 LTG Duration 4 weeks HEP Impairment pt is unsure what to add to gym routine Short Term Goal (STG) Pt will be I with HEP to perform in addition to gym routine Met 9/1 STG Duration 2 weeks Progress Towards Goals Progress Towards Goals Goals Met Assessment Summary Assessment Hemalatha requests DC today. She states she can perform her HEP at home and gym like I want to She has improved her endurance with activity and has good recall of HEP. Written instructions issued. Physical Therapy Plan Frequency and Duration Duration of Treatment 4 weeks Plan of Care Start Date 04/28/21 Plan of Care End Date 05/28/21 Therapeutic Interventions Therapeutic Interventions Home Exercise Program,Manual Therapy,Neuromuscular Re- education,Therapeutic Activities,Therapeutic Exercises Discharge Physical Therapy Discharge Reasons Patient Request Next Visit Focus/Plan Next Note Type Discharge Summary Next Visit Plan DC
== END 2021-05-11 13:11 | disposition home or self-care (01) ==
LOC: PHYS 11:15
PROVIDERS: PCP Physician Assistant; Referring Provider Internal Medicine; Visit Provider Internal Medicine
DX: R53.1 Weakness (principal); R26.89 Other abnormalities of gait and mobility
CPT/HCPCS: 97110; 97161

== ENCOUNTER → 2021-09-13 12:59 | Outpatient (CLI) | payer MEDICARE, OTHER, SELFPAY ==
[2021-09-13 14:15] LABS: Albumin 4.4 g/dL (3.5-5.0); BUN Creatinine Ratio 21.6 (6-22); Blood Urea Nitrogen 19 mg/dL (7-17); C-Reactive Protein Quant < 0.5 mg/dL (<1.0); Calcium 9.3 mg/dL (8.4-10.2); Carbon Dioxide 30 mmol/L (22-32); Chloride 103 mmol/L (98-107); Estimated Glomerular Filt Rate > 60.0 mL/min (>60); Glucose 106 mg/dL (80-110); HEMOLYSIS < 15 (0-50); Phosphorous 3.7 mg/dL (2.8-4.1); Potassium 3.9 mmol/L (3.4-5.1); Sodium 139 mmol/L (137-145)
[2021-09-13 14:58] LABS: Erythrocyte Sedimentation Rate 24 MM/HR (0-20)
[2021-09-16 20:28] LABS: CCP Antibodies IgG/IgA 3 units (0-19)
== END ==
PROVIDERS: PCP Physician Assistant; Referring Provider Physical Medicine & Rehabilitation; Visit Provider Physical Medicine & Rehabilitation
DX: M16.0 Bilateral primary osteoarthritis of hip (principal); M19.011 Primary osteoarthritis, right shoulder
CPT/HCPCS: 36415; 80069; 84443; 85651; 86140; 86200; 87040

== ENCOUNTER → 2022-01-04 09:32 | Outpatient (CLI) | payer MEDICARE, OTHER, SELFPAY ==
--- NOTE | 2022-01-04 | DI.MG.S_ITS ---
BILATERAL DIGITAL SCREENING MAMMOGRAM 3D/2D WITH CAD: 01/04/2022 CLINICAL: Routine screening. Family history of breast cancer. Comparison is made to exams dated: 12/27/2020 mammogram and 10/05/2017 mammogram - [facility]. There are scattered fibroglandular elements in both breasts. Current study was also evaluated with a Computer Aided Detection (CAD) system. No significant masses, calcifications, or other findings are seen in either breast. There has been no significant interval change. IMPRESSION: NEGATIVE There is no mammographic evidence of malignancy. A 1 year screening mammogram is recommended. This exam was interpreted at Station ID: [id number]. NOTE: For mammograms, a report in lay terms will be sent to the patient. Approximately 15% of breast malignancies will not be visualized mammographically. In the management of a palpable breast mass, a negative mammogram must not discourage biopsy of a clinically suspicious lesion. Electronically Signed By: Castro Lopez M.D., jr/alok:01/04/2022 13:38:38 letter sent: Normal Exam ACR BI-RADS Category 1: Negative [id number]
== END ==
PROVIDERS: PCP Physician Assistant; Referring Provider Physician Assistant; Visit Provider Physician Assistant
DX: Z12.31 Encounter for screening mammogram for malignant neoplasm of breast (principal); Z80.3 Family history of malignant neoplasm of breast
CPT/HCPCS: 77063; 77067

== ENCOUNTER → 2022-02-14 11:48 | Outpatient (CLI) | payer MEDICARE, OTHER, SELFPAY ==
--- NOTE | 2022-02-14 | DI.MRI.S_ITS ---
PROCEDURE: MR PELVIS WO CON INDICATIONS: Pain in left hip TECHNIQUE: Noncontrast coronal and axial T1 spin echo and STIR through the bony pelvis. COMPARISON: [facility], CR, XR PELVIS WITH LATERAL HIP LEFT, 12/15/2021, 9:58. FINDINGS: Image quality: Excellent. Bones: Mild joint space narrowing and periarticular osteophyte formation at the bilateral hip joints. Bone marrow of the pelvic ring, sacrum, and proximal femurs demonstrates otherwise normal signal throughout. No intraosseous lesions or fractures identified. The visualized lower lumbar spine appears normally aligned. There is moderate reactive signal within the endplates adjacent to the L4-L5 intervertebral disc. Tendons: The gluteus medius and minimus tendons appear intact, without associated muscle atrophy. There is moderate T2 signal elevation at the femoral insertion sites of the left gluteus medius and minimus tendons. Mild T2 signal elevation at the femoral insertion site of the right gluteus medius and minimus tendons. The nearby proximal iliotibial band also appears intact. The iliopsoas tendon appears intact, without adjacent bursal fluid collections or evidence for impingement syndrome. The origin of the hamstring tendon is intact at the ischial tuberosity, as well as the associated sacrotuberous ligament. The straight and reflected heads of the rectus femoris muscle origin appear intact, as well as the conjoint tendon. Soft tissues: Visualized muscles demonstrate normal bulk and internal signal. No joint effusions. No free pelvic fluid. Bladder wall thickness is normal. Multiple small low T2 intensity foci within the uterus, suggestive of flow voids. Genitourinary structures and bowel loops otherwise appear normal where visualized. IMPRESSION: 1. Insertional tendinitis of the gluteus medius and minimus tendons bilaterally. 2. No fracture. Dictated by: Lora Odonnell M.D. on 02/14/2022 at 16:36 Approved by: Lora Odonnell M.D. on 02/14/2022 at 16:38
== END ==
PROVIDERS: PCP Physician Assistant; Referring Provider Physical Medicine & Rehabilitation; Visit Provider Physical Medicine & Rehabilitation
DX: M76.02 Gluteal tendinitis, left hip (principal); M76.01 Gluteal tendinitis, right hip; M25.552 Pain in left hip
CPT/HCPCS: 72195

== ENCOUNTER → 2022-05-04 14:56 | Outpatient (CLI) | payer MEDICARE, OTHER, SELFPAY ==
[2022-05-08 17:00] LABS: Immunoglobulin A, Serum 43 mg/dL (64-422); Immunoglobulin G,Serum 3008 mg/dL (586-1602); Immunoglobulin M, Serum 26 mg/dL (26-217)
== END ==
PROVIDERS: PCP Physician Assistant; Referring Provider Student in an Organized Health Care Education/Training Program; Visit Provider Student in an Organized Health Care Education/Training Program
DX: R77.8 Other specified abnormalities of plasma proteins (principal)
CPT/HCPCS: 36415; 82784; 84155; 86334

== ENCOUNTER → 2022-12-11 15:47 | Outpatient (CLI) | payer MEDICARE, OTHER, SELFPAY ==
[2022-12-11 17:04] LABS: Add Manual Diff / Slide Review NO; Basophils Absolute Auto 0 /uL (0-100); Basophils Percent Auto 0.9 % (0-2); Eosinophils Absolute Auto 100 /uL (0-450); Eosinophils Percent Auto 1.2 % (2-4); Hematocrit 38.9 % (36-46); Hemoglobin 13.2 g/dL (12.0-16.0); Lymphocytes Absolute Auto 1100 /uL (1100-4500); Lymphocytes Percent Auto 19.8 % (25-40); Mean Corpuscular HGB Conc 34.1 % (30-36); Mean Corpuscular Hemoglobin 34.1 PG (26-34); Monocytes Absolute Auto 400 /uL (0-900); Monocytes Percent Auto 6.6 % (3-14); Neutrophils Absolute Auto 4000 /uL (1500-7000); Neutrophils Percent Auto 71.5 % (50-75); Platelet Count 218 X10^3/uL (150-400); Red Blood Cell Count 3.89 X10^6/uL (4.0-5.2); Red Cell Distribution Width 13.4 % (11.6-14.8); White Blood Cell Count 5.5 X10^3/uL (4.5-11.0)
[2022-12-11 18:01] LABS: Alanine Aminotransferase 21 IU/L (<35); Albumin 4.4 g/dL (3.5-5.0); Albumin Globulin Ratio 0.9 (1.0-2.8); Alkaline Phosphatase 61 U/L (38-126); Aspartate Aminotransferase 29 IU/L (14-36); BUN Creatinine Ratio 15.9 (6-22); Bilirubin Total 0.4 mg/dL (0.2-1.3); Blood Urea Nitrogen 13 mg/dL (7-17); Calcium 9.2 mg/dL (8.4-10.2); Carbon Dioxide 26 mmol/L (22-32); Chloride 103 mmol/L (98-107); Estimated Glomerular Filt Rate > 60 mL/min (>60); Globulin 4.8 g/dL (1.7-4.1); Glucose 99 mg/dL (80-110); HEMOLYSIS < 15 (0-50); Lactate Dehydrogenase 193 U/L (120-246); Potassium 4.2 mmol/L (3.4-5.1); Sodium 139 mmol/L (137-145); Total Protein 9.2 g/dL (6.3-8.2)
[2022-12-11 19:08] LABS: Folate > 20.0 ng/mL (2.76-20.0); Vitamin B12 411 pg/mL (239-931)
[2022-12-12 14:23] LABS: Free Lambda Lt Chains,Serum 7.1 mg/L (5.7-26.3)
[2022-12-13 15:46] LABS: Alpha-1-Globulin 0.2 g/dL (0.0-0.4); Alpha-2-Globulin 0.6 g/dL (0.4-1.0); Gamma Globulin 2.7 g/dL (0.4-1.8); Globulin Total 4.4 g/dL (2.2-3.9); Immunoglobulin A, Serum 44 mg/dL (64-422); Immunoglobulin G,Serum 3155 mg/dL (586-1602); Immunoglobulin M, Serum 21 mg/dL (26-217); Protein, Total 8.4 g/dL (6.0-8.5)
[2022-12-13 17:28] LABS: Beta-2-Microglobulin 1.9 mg/L (0.6-2.4)
== END ==
PROVIDERS: PCP Physician Assistant; Referring Provider Internal Medicine Hematology & Oncology; Visit Provider Internal Medicine Hematology & Oncology
DX: C90.00 Multiple myeloma not having achieved remission (principal); D75.89 Other specified diseases of blood and blood-forming organs
CPT/HCPCS: 36415; 80053; 82232; 82607; 82746; 82784; 83615; 83883; 84155; 84165; 85025; 86334

== ENCOUNTER → 2023-01-08 12:58 | Outpatient (CLI) | payer MEDICARE, OTHER, SELFPAY ==
--- NOTE | 2023-01-08 | DI.MG.S_ITS ---
BILATERAL DIGITAL SCREENING MAMMOGRAM 3D/2D WITH CAD: 01/08/2023 CLINICAL: Routine screening. Comparison is made to exams dated: 01/04/2022 mammogram, 12/27/2020 mammogram, and 11/06/2018 mammogram - [facility]. There are scattered areas of fibroglandular density in both breasts (category b / 25%-50% glandular tissue). Current study was also evaluated with a Computer Aided Detection (CAD) system. There is a benign calcification in both breasts. There also are benign vascular calcifications in both breasts. No significant masses, calcifications, or other findings are seen in either breast. There has been no significant interval change. IMPRESSION: BENIGN There is no mammographic evidence of malignancy. A 1 year screening mammogram is recommended. Based on the Tyrer Cuzick model (a risk assessment model) the patient's lifetime risk is 3.5% and her 10 year risk is 0.0%. According to the ACR, ACS, and NCCN guidelines, an annual breast MRI exam along with mammogram is recommended if the patient's lifetime risk is 20% or greater. This exam was interpreted at Station ID: [id number]. NOTE: For mammograms, a report in lay terms will be sent to the patient. Approximately 15% of breast malignancies will not be visualized mammographically. In the management of a palpable breast mass, a negative mammogram must not discourage biopsy of a clinically suspicious lesion. Electronically Signed By: Gerard caceres/alok:01/08/2023 16:15:38 letter sent: Normal Exam ACR BI-RADS Category 2: Benign Finding(s) 3342F
== END ==
PROVIDERS: PCP Physician Assistant; Referring Provider Internal Medicine Hematology & Oncology; Visit Provider Internal Medicine Hematology & Oncology
DX: Z12.31 Encounter for screening mammogram for malignant neoplasm of breast (principal)
CPT/HCPCS: 77063; 77067

== ENCOUNTER → 2023-01-22 08:49 | Outpatient (CLI) | payer MEDICARE, OTHER, SELFPAY ==
--- NOTE | 2023-01-22 08:50 | DI.RAD.S_ITS ---
PROCEDURE: XR CERVICAL SPINE 4V OR 5V INDICATIONS: left shoulder pain TECHNIQUE: 5 views of the cervical spine acquired. COMPARISON: [facility], CR, XR SHOULDER RT MIN 2V, 01/22/2023, 8:57. [facility], CT, C-SPINE WITHOUT CONTRAST, 09/19/2013, 17:10. FINDINGS: Bones: No fractures or dislocations to the T1 level. Small vertebral body osteophytes. Disc space height loss most pronounced at C4-C5 and C5-C6. Straightening of the cervical spine lordosis. Oblique images demonstrate no significant bony foraminal stenoses. Soft tissues: No prevertebral soft tissue swelling. IMPRESSION: Mild cervical spine degenerative change. Dictated by: Sacha Araujo M.D. on 01/22/2023 at 9:40 Approved by: Sacha Araujo M.D. on 01/22/2023 at 9:43
--- NOTE | 2023-01-22 08:50 | DI.RAD.S_ITS ---
PROCEDURE: XR SHOULDER RT MIN 2V INDICATIONS: shoulder pain TECHNIQUE: 3 views of the shoulder were acquired. COMPARISON: [facility], [place] PET CT FUSION WHOLE BODY, 01/17/2023, 10:12. [facility], [place], XR CERVICAL SPINE 4V OR 5V, 01/22/2023, 8:57. FINDINGS: Bones: No fractures or dislocations. Moderate to severe degenerative change at the glenohumeral joint. Mild degenerative change at the AC joint. Calcifications inferior to the glenohumeral joint. No suspicious bony lesions. Visualized ribs appear intact. Soft tissues: No suspicious soft tissue calcifications. Visualized portions of the right hemithorax are clear. 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 Calcifications inferior to the glenohumeral joint. These could represent loose bodies or heterotopic calcification. Dictated by: Sacha Araujo M.D. on 01/22/2023 at 9:43 Approved by: Sacha Araujo M.D. on 01/22/2023 at 9:47
== END ==
PROVIDERS: PCP Physician Assistant; Referring Provider Physical Medicine & Rehabilitation; Visit Provider Physical Medicine & Rehabilitation
DX: M47.22 Other spondylosis with radiculopathy, cervical region; M19.011 Primary osteoarthritis, right shoulder; M75.42 Impingement syndrome of left shoulder
CPT/HCPCS: 72050; 73030

== ENCOUNTER → 2023-06-11 11:48 | Outpatient (CLI) | payer MEDICARE, OTHER, SELFPAY ==
--- NOTE | 2023-06-11 | DI.MRI.S_ITS ---
PROCEDURE: MR LUMBAR SPINE WO CON INDICATIONS: SPINAL STENOSIS, LUMBAR REGION TECHNIQUE: Noncontrast sagittal T1 spin echo and T2 fast echo, sagittal STIR, and T2 fast spin echo through the lumbar spine. In cases with scoliosis, additional coronal T2 fast spin echo may be performed. COMPARISON: [facility], MR, MR LUMBAR SPINE WO CON, 05/11/2020, 14:18. FINDINGS: Image quality: Excellent. Alignment and Curvature: Rightward curvature of the lumbar spine. Bone Marrow: Marrow is of normal overall signal. No acute vertebral body compression fractures. Spinal Cord: Conus medullaris terminates at the L1 level. Visualized cord demonstrates normal signal and size. Paraspinous Soft Tissues: No paravertebral masses. T12-L1: Central disc bulge. No foraminal or central canal stenosis. L1-L2: Disc space narrowing and left disc bulge causes moderate left foraminal stenosis. The right foramen and central canal are patent. L2-L3: Diffuse disc bulge with a central posterior disc extrusion which has extended cephalad and caudad and measures approximately 2.7 x 0.8 x 0.4 cm, unchanged compared to the prior MRI the central canal is patent. The central canal has mild stenosis. L3-L4: Diffuse disc bulge and facet hypertrophy cause moderate bilateral foraminal stenosis. The central canal has mild stenosis. L4-L5: Diffuse disc bulge and facet hypertrophy cause moderate right and mild left foraminal stenosis. L5-S1: No significant disc bulge. The foramina and central canal are patent. IMPRESSION: 1. L2-3 central posterior disc extrusion which does not cause significant central canal or foraminal stenosis. 2. Multilevel lumbar spondylosis and dextroscoliosis causing foraminal and central canal stenosis as detailed above. 3. No acute abnormality Dictated by: Gerard Collado M.D. on 06/11/2023 at 16:53 Approved by: Gerard Collado M.D. on 06/11/2023 at 16:59
[2023-06-11 13:14] LABS: Magnesium 2.2 mg/dL (1.6-2.3)
[2023-06-11 13:51] LABS: Thyroid Stimulating Hormone 1.91 uIU/mL (0.47-4.68)
== END ==
PROVIDERS: Internal Medicine Cardiovascular Disease; PCP Physician Assistant; Referring Provider Physical Medicine & Rehabilitation; Visit Provider Physical Medicine & Rehabilitation
DX: M48.062 Spinal stenosis, lumbar region with neurogenic claudication (principal); M51.26 Other intervertebral disc displacement, lumbar region; M47.816 Spondylosis without myelopathy or radiculopathy, lumbar region; M41.9 Scoliosis, unspecified; R00.2 Palpitations; I49.1 Atrial premature depolarization; G47.33 Obstructive sleep apnea (adult) (pediatric); E03.9 Hypothyroidism, unspecified; I47.10 Supraventricular tachycardia, unspecified
CPT/HCPCS: 36415; 72148; 83735; 84443

== ENCOUNTER → 2023-07-10 15:08 | Outpatient (CLI) | payer MEDICARE, OTHER, SELFPAY ==
--- NOTE | 2023-07-10 15:10 | DI.RAD.S_ITS ---
PROCEDURE: XR KNEE RT 3V INDICATIONS: Knee DJD TECHNIQUE: 3 views of the knee were acquired. COMPARISON: [facility], CR, XR KNEE LT 3V, 04/30/2020, 11:18. FINDINGS: Bones: No fractures or dislocations. No suspicious bony lesions. Moderate tricompartmental periarticular osteophyte formation. Soft tissues: No joint effusion. No suspicious soft tissue calcifications. IMPRESSION: Osteoarthritis. No acute fracture. No osseous lesion. If symptoms and/or clinical suspicion for pathology persist, further assessment with repeat, or advanced imaging (e.g., CT, MRI, or bone scan) may be helpful for further assessment. Dictated by: Lora Odonnell M.D. on 07/10/2023 at 16:47 Approved by: Lora Odonnell M.D. on 07/10/2023 at 16:47
--- NOTE | 2023-07-10 15:10 | DI.RAD.S_ITS ---
PROCEDURE: XR KNEE LT 3V INDICATIONS: Knee DJD TECHNIQUE: 3 views of the knee were acquired. COMPARISON: [facility], CR, XR KNEE LT 3V, 04/30/2020, 11:18. FINDINGS: Bones: No fractures or dislocations. No suspicious bony lesions. Tricompartmental periarticular osteophyte formation Soft tissues: No joint effusion. No suspicious soft tissue calcifications. IMPRESSION: Osteoarthritis No acute fracture. No osseous lesion. If symptoms and/or clinical suspicion for pathology persist, further assessment with repeat, or advanced imaging (e.g., CT, MRI, or bone scan) may be helpful for further assessment. Dictated by: Lora Odonnell M.D. on 07/10/2023 at 16:46 Approved by: Lora Odonnell M.D. on 07/10/2023 at 16:46
== END ==
PROVIDERS: PCP Physician Assistant; Referring Provider Physical Medicine & Rehabilitation; Visit Provider Physical Medicine & Rehabilitation
DX: M17.0 Bilateral primary osteoarthritis of knee (principal)
CPT/HCPCS: 73562

== ENCOUNTER 2023-07-17 07:58 | Outpatient (CLI) | payer MEDICARE, OTHER, SELFPAY ==
[2023-07-17] VITALS (8 sets, daily range): BP systolic 90–144; BP diastolic 53–64; PULSE 68–78; RESP 16–22; TEMP 36.6; O2SAT 96–99
--- NOTE | 2023-07-17 07:59 | DI.RAD.S_ITS ---
PROCEDURE: PAIN L/S TRANSFORAMINAL INJECT INDICATIONS: SPONDYLOSIS COMPARISON: None. FINDINGS: Fluoroscopic spot filming was performed to verify placement of spinal needles at the left L2-L3 level(s), as labeled on the films. Appropriate location(s) of the needle tip(s) was confirmed by injection of iodinated contrast. IMPRESSION: Fluoroscopic image demonstrates left L2-L3 injection. Please see procedural report for details. Dictated by: Isabella Childs M.D. on 07/17/2023 at 18:48 Approved by: Isabella Childs M.D. on 07/17/2023 at 18:51
[2023-07-17] MEDS: MIDAZOLAM 2 MG/2 ML VIAL IV (08:48)
[2023-07-17] MEDS: iopamidoL 15 ML VIAL 3 ML INJ (08:52)
[2023-07-17] MEDS: BETAMETHASONE 30 MG/5 ML MDV 6 MG INJ (08:52)
[2023-07-17] MEDS: DEXAMETHASONE 10 MG/ML VIAL INJ (08:52)
[2023-07-17] MEDS: BUPIVACAINE 0.25% (PF) VIAL 2 ML INJ (08:52)
--- NOTE | 2023-07-17 09:07 | P.PCN_ITS ---
Date/Time/Diagnoses Date of procedure: 07/17/23 Time of procedure: 09:07 Pre-procedure diagnosis: 1. FORAMINAL STENOSIS WITH LE SYMPTOMS Post-procedure diagnosis: same Procedure Notes Procedure: 1. FLUOROSCOPICALLY GUIDED CONTRAST CONTROLLED TRANSFORAMINAL EPIDURAL STEROID INJECTION - LEFT L2/3 TFESI Indications: Hemalatha is referred by VINNIE Howell for treatment of Foraminal Stenosis with left LE Symptoms Physician: Romain Woods Total Fluoroscopy time (seconds): 17 Total sedation minutes: 14 Complications: none Procedure in detail & Post-procedure care: FINDINGS Foraminal Nerve Root Compression secondary to disc disease and facet hypertrophy DESCRIPTION OF PROCEDURE Following review of allergy and review of potential side effects and complications, including, but not necessarily limited to, infection, allergic reaction, local tissue breakdown, stroke, temporary or permanent nerve injury, paralysis, and possible , the patient indicated that the patient understood and agreed to proceed. An informed consent document was signed by the patient, witnessed by a nurse, and placed in the patient's chart. Additionally, other treatment options including medications, modalities, and physical therapy were reviewed with the patient. After review of previous anaesthesic history and IV conscious sedation the patient was deemed safe to proceed with today?s procedure with IV conscious sedation as ASA class II designation. Safety time-out was performed to confirm patient ID, procedure to be performed and site of procedure. IV sedation was accomplished with a combination of 2mg of Versed was administered by the RN after DO order, titrated to patient comfort during the course of the procedure while the patient remained responsive to all verbal commands In the prone position following sterile prep and drape of the lumbar region, the left L2/3 posterior neuroforamen was identified fluoroscopically. The skin was anesthetized via a 25-gauge 1.5-inch needle with 1% lidocaine solution. At this point, a 25-gauge 3.5-inch spinal needle was atraumatically introduced and advanced under fluoroscopic guidance through the posterior left L2/3 neuroforamen to approximately the anterior aspect of the canal. Depth was confirmed on lateral view. Following negative aspiration, injection of approximately 1.5 cc of Isovue 200 under live fluoroscopy in the AP view confirm ed excellent flow along the nerve root, into the epidural space without vascular or intrathecal uptake observed Radiological data, including multiple fluoroscopic views of the lumbosacral spine, reveal a spinal needle at the left L2/3 posterior neuroforamen. Subsequent views show flow of contrast material flowing superiorly and inferiorly along the nerve root confirming epidural flow. Subsequently, a test dose of 1.5cc of 1% lidocaine solution was administered and patient was observed for two minutes for signs or symptoms of complications, including abdominal pain, shortness of breath, bilateral upper or lower extremity weakness, nausea and vomiting, prior to steroid injection. At this point, a total of 2cc or 10mg of dexamethasone and 6mg betamethasone was injected without incident. The patient tolerated the procedure well without signs or symptoms of complications prior to transfer to the recovery area continued monitoring without incident. The patient was then transferred to the recovery area where they were observed for an appropriate time after the injection. The patient reported a VAS score of 7 prior to the procedure and a post-procedure VAS of 0. POST OP INSTRUCTIONS The patient was provided a Pain Log to continue to record their response to the target-specific procedure prior to follow-up visit with their referring physician. Additionally, specific post-injection care instructions and a contact number to our office were provided if concerns arise regarding possible complications associated with the procedure are suspected.
== END 2023-07-17 09:15 | disposition home or self-care (01) ==
LOC: RAD 07:58
PROVIDERS: PCP Physician Assistant; Referring Provider Physical Medicine & Rehabilitation; Visit Provider Physical Medicine & Rehabilitation
DX: M48.061 Spinal stenosis, lumbar region without neurogenic claudication (principal); M51.16 Intervertebral disc disorders with radiculopathy, lumbar region; M47.26 Other spondylosis with radiculopathy, lumbar region
CPT/HCPCS: 64483; 99152; J0702; J1100; J2250; J3490

== ENCOUNTER → 2024-05-09 08:23 | Outpatient (CLI) | payer MEDICARE, OTHER, SELFPAY ==
--- NOTE | 2024-05-09 | DI.MG.S_ITS ---
BILATERAL DIGITAL SCREENING MAMMOGRAM 3D/2D WITH CAD: 05/09/2024 CLINICAL: Routine screening. Family history of breast cancer. Comparison is made to exams dated: 01/08/2023 mammogram, 01/04/2022 mammogram, and 12/27/2020 mammogram - [facility]. There are scattered areas of fibroglandular density in both breasts (category b / 25%-50% glandular tissue). Current study was also evaluated with a Computer Aided Detection (CAD) system. No significant masses, calcifications, or other findings are seen in either breast. There has been no significant interval change. IMPRESSION: NEGATIVE There is no mammographic evidence of malignancy. A 1 year screening mammogram is recommended. Based on the Tyrer Cuzick model (a risk assessment model) the patient's lifetime risk is 3.0% and her 10 year risk is 0.0%. According to the ACR, ACS, and NCCN guidelines, an annual breast MRI exam along with mammogram is recommended if the patient's lifetime risk is 20% or greater. This exam was interpreted at Station ID: [id number]. NOTE: For mammograms, a report in lay terms will be sent to the patient. Approximately 15% of breast malignancies will not be visualized mammographically. In the management of a palpable breast mass, a negative mammogram must not discourage biopsy of a clinically suspicious lesion. Electronically Signed By: Eufemia pillai/alok:05/09/2024 13:40:48 letter sent: Normal Exam ACR BI-RADS Category 1: Negative [id number]
== END ==
PROVIDERS: PCP Physician Assistant; Referring Provider Physician Assistant; Visit Provider Physician Assistant
DX: Z12.31 Encounter for screening mammogram for malignant neoplasm of breast (principal); Z80.3 Family history of malignant neoplasm of breast
CPT/HCPCS: 77063; 77067

== ENCOUNTER → 2024-10-07 11:53 | Outpatient (CLI) | payer MEDICARE, OTHER, SELFPAY ==
--- NOTE | 2024-10-07 | DI.RAD.S_ITS ---
PROCEDURE: XR CALCANEOUS RT MIN 2V INDICATIONS: Pain in right foot, Achilles tendinitis TECHNIQUE: Two views of the calcaneus were acquired. COMPARISON: None. FINDINGS: Bones: No osseous abnormality Joints: The joint spaces are normal in width and alignment without arthritic change. Soft tissues: Minor calcification of the plantar tendon insertion on the calcaneus appreciated. There is moderate plantar soft tissue swelling IMPRESSION: Moderate plantar soft tissue swelling over the calcaneus and visualized midfoot which is likely edema. Cellulitis not excluded Dictated by: Pako Collado M.D. on 10/08/2024 at 10:38 Approved by: Pako Collado M.D. on 10/08/2024 at 10:39
== END ==
PROVIDERS: PCP Physician Assistant; Referring Provider Physician Assistant; Visit Provider Physician Assistant
DX: M79.671 Pain in right foot (principal); M76.60 Achilles tendinitis, unspecified leg; M79.89 Other specified soft tissue disorders
CPT/HCPCS: 73650

== ENCOUNTER → 2024-10-13 11:40 | Outpatient (CLI) | payer MEDICARE, OTHER, SELFPAY ==
--- NOTE | 2024-10-13 11:45 | DI.US.S_ITS ---
PROCEDURE: US EXTREMITY NONVASC LOWER RT INDICATIONS: PAIN ON RIGHT HEEL TECHNIQUE: Real-time scanning was performed of the right ankle, with image documentation. COMPARISON: None. FINDINGS: Focused ultrasound examination of posterior right ankle at the level of Achilles tendon shows thickened right Achilles tendon with heterogeneous intrasubstance echotexture and mildly increased vascularity. IMPRESSION: Finding is suggestive of tendinosis and low-grade intrasubstance partial-thickness tear involving right Achilles tendon. No full-thickness Achilles tendon rupture. Dictated by: Horace Hidalgo M.D. on 10/13/2024 at 15:18 Approved by: Horace Hidalgo M.D. on 10/13/2024 at 15:20
== END ==
LOC: US 11:44
PROVIDERS: PCP Physician Assistant; Referring Provider Physician Assistant; Visit Provider Physician Assistant
DX: M76.60 Achilles tendinitis, unspecified leg (principal); S86.011A Strain of right Achilles tendon, initial encounter; M79.671 Pain in right foot
CPT/HCPCS: 76882

== ENCOUNTER 2025-02-28 11:41 | Emergency (ER) | payer MEDICARE, OTHER, SELFPAY ==
[2025-02-28 11:45] VITALS: BP 172/84; PULSE 77; RESP 18; TEMP 36.6; O2SAT 100; BMI 24.5
--- NOTE | 2025-02-28 12:00 | ED_ITS ---
<Statement entered by Pako Vidales, DO - 03/01/25 07:05> Co-sign statement: I was available for consultation during this patient's emergency department visit. This chart is signed by myself for administrative purposes only. I do not have direct contact with this patient during this visit. They were seen independently by the APC. HPI - Epistaxis General Chief complaint: Nasal Problem Stated complaint: Bloody nose; happening every 2-3days Time Seen by Provider: 02/28/25 12:00 Source: patient Mode of arrival: Ambulatory History of Present Illness HPI Narrative: Ms. Hutton is a very pleasant 79-year-old female with a past medical history of TBI, aphasia, GOLDIE, multiple myeloma who presents to the emergency department for intermittent nosebleeds over the last 2 weeks. Patient denies any trauma to the nose, but states over the last 2 weeks she will get a nosebleed every few days from the right nare. She did use Afrin 1 day and did not have a nosebleed that entire day. The nosebleed. After applying pressure for 15 minutes however she is frustrated that they continue, she had a nosebleed this morning while she was reading a book. She does not currently have an active nosebleed. Denies any blood thinner use besides aspirin. No history of similar problems. No other concerns. Related Data Home Medications ?Medication ?Instructions ?Recorded ?Confirmed aspirin 81 mg tablet,delayed 81 mg DAILY 12/11/2203/03 release ferrous sulfate 324 mg (65 mg 324 mg PO DAILY 12/11/22 07/16/24 iron) tablet,delayed release glucosamine sulfate 500 mg tablet 500 mg PO DAILY 11/3007/16/24 (Glucosamine) levothyroxine 50 mcg tablet 50 mcg PO DAILY 12/11/22 1 09/15/23 Calm 1 tbsp DAILY 01/01/23 Cbd Gummies 1 tab DAILY 01/01/23 4 ascorbic acid (vitamin C) 1,000 mg 1 g PO Q6H 07/11/23 07/16/24 capsule cholecalciferol (vitamin D3) 50 50 mcg PO DAILY 07/16/24 mcg (2,000 unit) capsule gabapentin 300 mg capsule 600 mg PO BEDTIME 07/16/24 1 09/15/23 Previous Rx's ?Medication ?Instructions ?Recorded sodium hyaluronate 60 mg capsule 120 mg (2 x 60 mg) PO DAILY #180 09/28/23 caps escitalopram oxalate 10 mg tablet 10 mg PO DAILY #90 t abs 04/15/24 pramipexole 2.25 mg 2.25 mg PO BEDTIME #90 tabs 07/16/24 tablet,extended release 24 hr Held on 07/16/24. Instructions: Home Medication placed on hold at Doctor's office ropinirole 2 mg tablet 2 mg PO DAILY #90 tabs 09/11 ropinirole 0.5 mg tablet 0.5 mg PO DAILY #90 tabs 07/04 Allergies Allergy/AdvReac Type Severity Reaction Status Date / Time Milk Containing Products Allergy Mild Verified 02/28/25 11:49 (Dairy) Penicillins (PENICILLINS) Allergy Mild RASH Verified 02/28/25 11:45 Sulfa (Sulfonamide Allergy Mild Rash Verified 02/28/25 11:49 Antibiotics) Review of Systems Review of Systems ROS Unobtainable: All systems reviewed & are unremarkable except as noted in HPI and below Patient History Medical History Degenerative joint disease (DJD) of hip Expressive aphasia Degenerative joint disease of knee Internal impingement of right shoulder Heterotopic ossification of bone Cervical radiculopathy Impingement syndrome of left shoulder GOLDIE (obstructive sleep apnea) Restless leg syndrome Obstructive sleep apnea of adult Traumatic brain injury with loss of consciousness Surgical History Status post cholecystectomy Social History marital status: household members: spouse lives independently: Yes caregiver/support person: No housing: house occupational status: previously employed Smoking Status: Never smoker alcohol intake frequency: 0-2 drinks per day Exam Narrative Exam Narrative: GENERAL: 79 year old patient appears stated age. Well-developed patient, in no acute distress. HEAD: Atraumatic. Normocephalic. EYES: Extraocular motions intact. No scleral icterus. No injection or drainage. ENT: No epistaxis. Left nares patent with no abnormalities. Right nares patent with punctate area of erythema on the medial side, likely cause of intermittent epistaxis. NECK: Trachea midline. Cervical ROM intact. CARDIOVASCULAR: Regular rate RESPIRATORY: ?Nonlabored respirations. ?Speaking in clear, full sentences. ? NEURO: AOx3. ?Clear speech. ?Aphasia with intermittent word finding difficulties, baseline. SKIN: No rash or erythema of visible areas. Warm, dry. Initial Vital Signs Initial Vital Signs: Vital Signs Temperature 98 F 02/28/25 11:45 Pulse Rate 77 02/28/25 11:45 Respiratory Rate 18 02/28/25 11:45 Blood Pressure 172/84 H 02/28/25 11:45 Pulse Oximetry 100 02/28/25 11:45 Oxygen Delivery Method Room Air 02/28/25 11:45 Course Vital Signs Vital signs: Vital Signs - 8 hr 02/28/25 11:45 Temperature 98 F Pulse Rate 77 Respiratory Rate 18 Blood Pressure 172/84 H Pulse Oximetry 100 Oxygen Delivery Method Room Air MDM - Epistaxis Medical Records Attestation: I reviewed the patient's medical records. MDM Narrative Medical decision making narrative: 79-year-old female with a past medical history of TBI, aphasia, GOLDIE, multiple myeloma who presents to the emergency department for intermittent nosebleeds over the last 2 weeks. Differential diagnosis includes but is not limited to anterior epistaxis, posterior epistaxis, etc. On exam patient is in no acute distress, nontoxic-appearing, all vital signs within normal limits except for mildly elevated blood pressure. Physical exam reveals anterior punctate open skin on medial right nare, likely source of moriah ent's intermittent epistaxis. There is no active bleeding. We discussed using Afrin, direct pressure clamping if it does start to bleed however I stressed the importance of prevention by keeping nasal mucosa hydrated, avoid blowing or picking nose. Advised follow up with ENT for further evaluation. Discussed the importance of returning to ED if she has recurrent/persistent bleeding despite clamping for 15 minutes. She has Afrin at home and was provided with a foam clamp in the ED. Patient verbalized understanding of all information and is agreeable with the plan. She is stable for discharge home. Discharge Plan Departure Patient Disposition: Home Clinical Impression: Epistaxis, Elevated blood pressure reading Instructions: DI for Nosebleed Activity Restrictions/Additional Instructions: Dear Ms. Hutton, Thank you for coming to the emergency department. Today your nose exam revealed a small spot in your right nare that is likely causing your nosebleeds. If your nose starts to bleed, spray Afrin into the nostrils and apply a clamp for at least 15 minutes. Try to avoid blowing, picking or rubbing the nose and prevent the nose from drying out to prevent recurrent nosebleeds. You can put Vaseline directly into both nostrils to help keep the area hydrated, especially do this before bed. Please call to schedule an appointment with [facility] at [phone] next week for further evaluation and management. If you have a persistent nosebleed even after 15 minutes of clamping, come to the ER for further management. Your blood pressure was slightly elevated today, please follow up with your primary care doctor for blood pressure recheck. Please follow up with your primary care doctor within the next 2-3 days for ER follow-up. (If you do not have a PCP you can call [phone]. ?to schedule an appointment with an [facility] Primary Care Provider) IF YOU DEVELOP ANY NEW OR WORSENING SYMPTOMS, RETURN TO THE ER! Please read the attached instructions, they highlight more specific treatments and interventions for you at home. Thank you for letting me participate in your care, Rachel Bush PA-C Prescriptions: No Action sodium hyaluronate 60 mg capsule 120 mg PO DAILY Qty: 180 1RF Rx Instructions: TAKE 2- 60 MG CAPS DAILY escitalopram oxalate 10 mg tablet 10 mg PO DAILY Qty: 90 1RF pramipexole 2.25 mg tablet extended release 24 hr 2.25 mg PO BEDTIME Qty: 90 1RF ropinirole 2 mg tablet 2 mg PO DAILY Qty: 90 1RF Rx Instructions: TAKE 1 TAB BY MOUTH 1-3 HOURS BEFORE BEDTIME ropinirole 0.5 mg tablet 0.5 mg PO DAILY Qty: 90 0RF Rx Instructions: 1 at noon and still using the 2mg for night glucosamine sulfate [Glucosamine] 500 mg Tablet 500 mg PO DAILY Rx Instructions: administer with a meal levothyroxine 50 mcg Tablet 50 mcg PO DAILY ferrous sulfate 324 mg (65 mg iron) Tablet,Delayed Release (Dr/Ec) 324 mg PO DAILY aspirin [Aspir-81] 81 mg Tablet,Delayed Release (Dr/Ec) 81 mg DAILY Calm 1 tbsp DAILY Cbd Gummies 1 tab DAILY cholecalciferol (vitamin D3) 50 mcg (2,000 unit) capsule 50 mcg PO DAILY ascorbic acid (vitamin C) 1,000 mg capsule 1 g PO Q6H gabapentin 300 mg capsule 600 mg PO BEDTIME Referrals: Brody Martinez MD [Physician, Ear, Nose, Throat] Referral Note: Intermittent epistaxis Karyn Howell PA-C [Primary Care Provider, Medical] Stand Alone Forms: Patient Portal/API
== END 2025-02-28 12:10 | disposition home or self-care (01) ==
PROVIDERS: Emergency Provider Physician Assistant; PCP Physician Assistant
DX: R04.0 Epistaxis (principal); R03.0 Elevated blood-pressure reading, without diagnosis of hypertension
CPT/HCPCS: 99281

== ENCOUNTER → 2025-08-30 09:00 | Outpatient (CLI) | payer MEDICARE, OTHER, SELFPAY ==
--- NOTE | 2025-08-30 09:02 | DI.MRI.S_ITS ---
PROCEDURE: MR LUMBAR SPINE WO CON INDICATIONS: lower extremity weakness TECHNIQUE: Noncontrast sagittal T1 spin echo and T2 fast echo, sagittal STIR, and T2 fast spin echo through the lumbar spine. In cases with scoliosis, additional coronal T2 fast spin echo may be performed. COMPARISON: [facility], MR, MR LUMBAR SPINE WO CON, 06/11/2023, 15:31. FINDINGS: Image quality: Diagnostic Alignment and Curvature: S-shaped lumbar scoliosis with superior dextrocurvature centered at L2 and inferior levocurvature centered at L4. Mild, grade 1, 1 mm, anterolisthesis of T12 on L1. Mild, grade 1, 2 mm, retrolisthesis of L1 on L2, L2 on L3. Mild, grade 1, 1 mm, anterolisthesis of L5 on S1. Bone Marrow: Marrow is of normal overall signal. No acute vertebral body compression fractures. Discogenic degenerative sub endplate bone marrow edema centered at the L1-2 disc space. Spinal Cord: Conus medullaris terminates at the T12-L1 level. Visualized cord demonstrates normal signal and size. Paraspinous Soft Tissues: No paravertebral masses. T12-L1: Similar diffuse, symmetric, bulging disc which indents anterior thecal sac but does not result in significant spinal canal stenosis. No neural foraminal stenosis.. L1-L2: Progressive moderate left lateral recess stenosis due to diffusely bulging disc, scoliotic curvature, ligamentum flavum thickening, and facet arthrosis. Progressive left moderate neural foraminal stenosis due to scoliotic curvature, disc height loss, foraminal disc bulge, facet arthrosis and ligamentum flavum thickening. No right neural foraminal stenosis. L2-L3: Similar mild spinal canal stenosis due to retrolisthesis disc uncovering, ligamentum flavum thickening, and facet arthrosis. Progressive left moderate neural foraminal stenosis due to scoliotic curvature, retrolisthesis disc uncovering, ligamentum flavum thickening, and facet arthrosis. Progressive mild right neural foraminal stenosis due to scoliosis, retrolisthesis, ligamentum flavum thickening, and facet arthrosis. L3-L4: Desiccated disc with minimal height loss, ligamentum flavum thickening and facet arthrosis which do not result in significant spinal canal stenosis. Progressive moderate bilateral neural foraminal stenosis due to scoliotic curvature, foraminal bulging disc, facet arthrosis, ligamentum flavum thickening. L4-L5: Similar mild right lateral recess stenosis due to scoliotic curvature, asymmetric central to right extraforaminal bulging disc, ligamentum flavum thickening, and facet arthrosis. Similar right moderate and left mild neural foraminal stenosis due to scoliotic curvature, asymmetric bulging disc, ligamentum flavum thickening, and facet arthrosis. L5-S1: No spinal canal stenosis. No neural foraminal stenosis. IMPRESSION: 1. Multilevel progressive neural foraminal stenosis, which reaches moderate on the left at L1-2 and L2-3, bilaterally at L3-4, and on the right at L4-5. 2. Progressive moderate left lateral recess stenosis at L1-2. Other levels of mild lateral recess stenosis as detailed above. 3. S-shaped lumbar scoliotic curvature. 4. Progressive acute on chronic disc degeneration at L1-2. Dictated by: Campbell Burgos M.D. on 08/31/2025 at 13:33 Approved by: Campbell Burgos M.D. on 08/31/2025 at 13:46
== END ==
LOC: MRI 09:01
PROVIDERS: PCP Physician Assistant; Referring Provider Physician Assistant Surgical; Visit Provider Physician Assistant Surgical
DX: M51.369 Other intervertebral disc degeneration, lumbar region without mention of lumbar back pain or lower extremity pain (principal); M47.816 Spondylosis without myelopathy or radiculopathy, lumbar region; M48.061 Spinal stenosis, lumbar region without neurogenic claudication; M41.9 Scoliosis, unspecified; R29.898 Other symptoms and signs involving the musculoskeletal system; M43.16 Spondylolisthesis, lumbar region
CPT/HCPCS: 72148